=== PATIENT | male | born 1955 | race African-American/Black ===

== ENCOUNTER → 2016-12-27 | Outpatient (CLI) | payer OTHER ==
--- NOTE | ~2016-12-27 | MR113 ---
STS. [facility] A Service of [facility] RADIOLOGY TEXT RESULTS PATIENT: RHINA ZEPEDA LOCATION: [facility] : 59 UNIT #: [id number] AGE: [address]: Saad Johnson MD SEX: M ORDER DR: [id number] [place] [id number] MR#: [id number] Acc #: [id number] NAME: RHINA ZEPEDA : 1955 SEX: M STUDY DATE/TIME: 12/27/2016 10:22 UNIT: [facility] ROOM: STUDY DESCRIPTION: MR Lumbar Wo Contrast Attending Physician: Saad Johnson M.D. Referring Physician: Saad Johnson M.D. Ordering Physician: Saad Johnson M.D. Primary Care Physician: Danuta Hendrickson [facility] REPORT This report is preliminary unless electronic signature is present. EXAM Lumbar spine MRI no contrast date of study 12/27/2016 PROCEDURE Routine unenhanced lumbar spine MRI COMPARISON None. CLINICAL HISTORY Worsening low back pain and right leg weakness over a 1.5 to 2 years. FINDINGS There is slight 5-1 retrolisthesis and mild degenerative marrow signal change surrounding the 5-1 disc. There is also a slight scoliosis though that may be positional. Bone marrow signal is otherwise normal and the distal cord and conus are normal in position and appearance. The paraspinous soft tissues are normal. At L1-2 the disc canal and foramina are normal. At L2-3 there is a very slight disc bulge but no canal stenosis and borderline if any bilateral foraminal narrowing. At 3-4, there is disc desiccation and a slight bulge but no canal stenosis and borderline bilateral foraminal narrowing. At L4-5 disc and endplate change and facet arthropathy cause borderline to mild canal stenosis. There is [id number] right and left foraminal stenosis. At 5-1 there is retrolisthesis disc and endplate change and facet arthropathy but no canal stenosis. There is mild or [id number] STS. [facility] A Service of [facility] RADIOLOGY TEXT RESULTS PATIENT: RHINA ZEPEDA LOCATION: [facility] : 59 UNIT #: [id number] AGE: [address]: Saad Johnson MD SEX: M ORDER DR: right and moderate to severe left foraminal stenosis. IMPRESSION Degenerative changes as above. Areas of canal and foraminal narrowing detailed above. Dictated by... Arron Mckeon M.D. THIS IS AN ELECTRONICALLY VERIFIED REPORT Arron Mckeon M.D. at 12/31/2016 9:25 AM REBEL/vianca TD: 12/29/2016 04:04 JOB #: [id number] [facility] REPORT Page 1 of 1
== END | disposition home or self-care (01) ==
LOC: SMRI 09:02
DX: M54.16 Radiculopathy, lumbar region (principal); M47.26 Other spondylosis with radiculopathy, lumbar region
CPT/HCPCS: 72148